=== PATIENT | female | born 1975 | race Caucasian/White ===

== ENCOUNTER 2025-06-17 19:54 | Outpatient (REF) | payer BC, SELFPAY ==
--- OUTSIDE RECORDS SUMMARY | 2025-04-15 04:00 | XMS_ITS ---
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 Role Phone Hortencia Recio Primary Care Provider REASON FOR VISIT 3 month f/u bh Encounters Encounter Location Date Provider Diagnosis [facility] [address] [place] [address] 04/15/2025 Hortencia Recio Plan Of Treatment Next Appt Details Provider Name:Hortencia spencer, 09/08/2025 08:00:00 AM, [address] [place], [address], Progress Notes * PARK WEISSDOB:1975 ( 50 yo F)Acc No.[id number]:04/15/2025 Behavioral Health Patient: PARK BANEGAS Provider: Nisa Recio :1975 A ge:49 Y S ex:Female Date:04/15/2025 Address:[address] [address], [address], [id number] Subjective: * Chief Complaints: * 1 . 3 month f/u bh. * Medical History: Objective: * Vitals: Assessment: Plan: * Treatment: * Images: * Electronic signature of PRICILA Zurita on 06/17/2025 at 01:54 PM EDT Sign off status: Pending * Provider: Nisa Recio Date: 0 04/15/2025 Generated for Diazi ng/Faeastong/eTransmitting on: 06/17/2025 01:54 PM EDT
--- OUTSIDE RECORDS SUMMARY | 2025-06-17 19:59 | XMS_ITS | Patient Health Record ---
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 Phone Hortencia Recio Primary Care Provider [phone] Beverley Fulton Unavailable [phone] Allergies Allergen (clinical drug ingredient) Drug/Non Drug Allergy documented on EMR Reaction Allergy Type Onset Date Status cephalexin Cephalexin Unknown Drug Allergy Activ e Reason For Referral No Information Medications Medication SIG (Take, Route, Frequency, Duration) Notes Start Date End Date Status predniSONE 5 MG 1 tablet Orally Once a day Active Potassium Citrate ER 15 MEQ (1620 MG) 1 tablet with meals Orally Twice a day Active clonazePAM 0.5 MG 1 tablet Orally MARIA D Y PRN F41.1 03/19/2023 Not-Taking Gabapentin 300 MG 1 capsule Orally twi ce a day Active lamoTRIgine 200 MG 1 tablet Orally Once a day 04/04/2023 Not-Taking QUEtiapine Fumarate 50 MG 1 tablet at bedtime Orally Once a day; Duration: 30 days Active Latuda 120 MG 1 tablet Orally Once a day Not-Taking Methotrexate 20 MG/0.8ML as directed Subcutaneous Not-Taking lamoTRIgine 100 MG 1 tablet Orally Once a day; Duration: 30 days 03/19/2023 Active Humira Pen 40 MG/0.8ML as directed Subcutaneous Not-Taking Flomax 0.4 MG 1 capsule Orally Onc e a day Not-Taking Folic Acid 1 MG 2 TABS Orally Once a day Not-Taking Social History Tobacco Use: Social History Observation Description Date Details (start date - stop date) Never Smoker NA - NA Depression Screening (PHQ-9): Question Answer Notes Little interest or pleasure in doing things Near ly every day Feeling down, depressed, or hopeless Nearly ever y day Trouble falling or staying asleep, or sleeping t oo much Nearly every day Feeling tired or having little energy Nearly trish ry day Poor appetite or overeating Several days Feeling bad about yourself-o r that you are a failure or have let yourself or your family down Nearly every day Trouble concentrating on thi ngs, such as reading the newspaper or watching television Nearly every day Moving or speaking so slowly that other people could have noticed. Or the opposite being so fidgety or restless that you have been moving around a lot more than usual More than half the days Thoughts that you would be b jace off , or of hurting yourself in some way Not at all Total Score 21 Intepretation Severe Depression AUDIT-C (Standard) Question Answer Notes Did you have a drink containing alcohol in the p ast year? No Points 0 Interpretation Negative Tobacco Control (Standard) Question Answer Notes Tobacco use: Nonsmoker Problems Problem Type SNOMED Code ICD Code Onset Dates Problem Status W/U Status Risk Notes Problem Bipolar 1 disorder, depressed, mild (F31.31) Active confirmed Vital Signs Heart Rate 68 /min 05/12/2025 Temperature 97.4 degrees Fahrenheit 01/13/2025 Blood pressure diastolic 78 mm Hg 05/12/2025 Oximetry 99 % 05/12/2025 Height 71 in 05/12/2025 Blood pressure systolic 115 mm Hg 05/12/2025 Weight 162.4 lbs 05/12/2025 BMI 22.65 kg/m2 05/12/2025 Encounters Encounter Location Date Provider Diagnosis [facility] [address] [place] [address] 11/26/2024 Beverley Fulton [facility] [address] [place] [address] 12/19/2024 Hortencia Recio Bipolar 1 disorder, depressed, mild F31.31 [facility] [address] [place] [address] 01/13/2025 Hortencia Recio Bipolar 1 disorder, depressed, mild F31.31 [facility] [address] [place] [address] 05/12/2025 Hortencia Recio Bipolar 1 disorder, depressed, mild F31.31 Assessments Encounter Date Diagnosis (ICD Code) Assessment Notes Treatment Notes Treatment Clinical Notes Section Notes 12/19/2024 Bipolar 1 disorder, depressed, mild (ICD-10 - F31.31) Patient will continue current treatment plan. Patient verbally acknowledges understanding instructions including medication education and has no further questions comments or concerns at this time. . Follow in 1 Month . Recommended treatment for Bipolar disorder includes FDA approved and OFF label medications: second generation antipsychotics and mood stabilizers. Discussed life threatening side effect of Lamotrigine. Pt is to monitor for new skin rashes or sensation of a sunburn or itchiness or redness, mouth sores or sores in mucus membranes, and call provider immediately and or go to ER, and stop the medication. Second generation antipsychotic medications can cause headache, drowsiness, agitation, dizziness, nausea, or extrapyramidal symptoms such as tremors, muscle spasms, slowness of movement or jerking of muscles. . Stable . The patient verbalizes understanding with all questions answered thoroughly and is in agreement with treatment plan. . Continue current treatment. Call for problems . GOALS: . Maintain medication regimen . _Improve mood stability . _Improve anxiety control . _Improve social and interpersonal functioning . Patient/Guardian will call sooner if symptoms worsen. Patient understands to go to ER if needed if symptoms become severe. . Crisis Intervention plan was discussed and agreed upon. Patient/Guardian will call 911 in case of emergency. Emergency contact information was provided to the patient/guardian. . Pharmacological management: . Alternative medication plans were discussed with the patient/guardian. All relevant side effects and potential adverse effects were discussed with the patient/guardian. Standard cautions and potential benefits were discussed. Patient/Guardian consented to the start/continuation of the treatment. 01/13/2025 Bipolar 1 disorder, depressed, mild (ICD-10 - F31.31) Patient will continue current treatment plan. Patient verbally acknowledges understanding instructions including medication education and has no further questions comments or concerns at this time. . Follow in 3 Months . Recommended treatment for Bipolar disorder includes FDA approved and OFF label medications: second generation antipsychotics and mood stabilizers. Discussed life threatening side effect of Lamotrigine. Pt is to monitor for new skin rashes or sensation of a sunburn or itchiness or redness, mouth sores or sores in mucus membranes, and call provider immediately and or go to ER, and stop the medication. Second generation antipsychotic medications can cause headache, drowsiness, agitation, dizziness, nausea, or extrapyramidal symptoms such as tremors, muscle spasms, slowness of movement or jerking of muscles. . Stable . The patient verbalizes understanding with all questions answered thoroughly and is in agreement with treatment plan. . Continue current treatment. Call for problems . GOALS: . Maintain medication regimen . _Improve mood stability . _Improve anxiety control . _Improve social and interpersonal functioning . Patient/Guardian will call sooner if symptoms worsen. Patient understands to go to ER if needed if symptoms become severe. . Crisis Intervention plan was discussed and agreed upon. Patient/Guardian will call 911 in case of emergency. Emergency contact information was provided to the patient/guardian. . Pharmacological management: . Alternative medication plans were discussed with the patient/guardian. All relevant side effects and potential adverse effects were discussed with the patient/guardian. Standard cautions and potential benefits were discussed. Patient/Guardian consented to the start/continuation of the treatment. 05/12/2025 Bipolar 1 disorder, depressed, mild (ICD-10 - F31.31) Patient will continue current treatment plan. Patient verbally acknowledges understanding instructions including medication education and has no further questions comments or concerns at this time. . Follow in 4 Month . Recommended treatment for Bipolar disorder includes FDA approved and OFF label medications: second generation antipsychotics and mood stabilizers. Discussed life threatening side effect of Lamotrigine. Pt is to monitor for new skin rashes or sensation of a sunburn or itchiness or redness, mouth sores or sores in mucus membranes, and call provider immediately and or go to ER, and stop the medication. Second generation antipsychotic medications can cause headache, drowsiness, agitation, dizziness, nausea, or extrapyramidal symptoms such as tremors, muscle spasms, slowness of movement or jerking of muscles. . Stable . The patient verbalizes understanding with all questions answered thoroughly and is in agreement with treatment plan. . Continue current treatment. Call for problems . GOALS: . Maintain medication regimen . _Improve mood stability . _Improve anxiety control . _Improve social and interpersonal functioning . Patient/Guardian will call sooner if symptoms worsen. Patient understands to go to ER if needed if symptoms become severe. . Crisis Intervention plan was discussed and agreed upon. Patient/Guardian will call 911 in case of emergency. Emergency contact information was provided to the patient/guardian. . Pharmacological management: . Alternative medication plans were discussed with the patient/guardian. All relevant side effects and potential adverse effects were discussed with the patient/guardian. Standard cautions and potential benefits were discussed. Patient/Guardian consented to the start/continuation of the treatment. Plan Of Treatment Next Appt Details Provider Name:Hortencia spencer, 09/08/2025 08:00:00 AM, [address] [place] [address], [address], Insurance Providers Payer Name Payer Address Payer Phone Subscriber Number Group Number Insured Name Patient Relationship to Insured Coverage Start Date Coverage End Date [facility] [address] [place] [address] [id number] PARK WEISS Self - patient is the insured 5 [employer] [place] [address] [place] [address] [id number] PARK WEISS Self - patient is the insured 1 4 [facility] [address] [place] [address] [id number] PARK WEISS Self - patient is the insured 3 4 [facility] [address] [place] [address] [id number] PARK WEISS Self - patient is the insured 3 4 Medical (General) History Medical History History ICD Code bipolar rheumatoid arthritis Surgical History Surgery Date(Month/Year) X 4 tonsillectomy cholecystectomy exploratory laparoscopy x 2 ankle surgery knee surgery-right
[2025-06-22 19:07] LABS: Age Gdln ACOG Testing Note (.); IGP, Aptima HPV, rfx 16/18,45 Note (.)
== END 2025-06-17 19:55 | disposition home or self-care (01) ==
LOC: LAB 19:54
PROVIDERS: Visit Provider Obstetrics & Gynecology
DX: Z01.419 Encounter for gynecological examination (general) (routine) without abnormal findings (principal)
CPT/HCPCS: 87624; 88175